=== PATIENT | female | born 1965 | race Asian ===

== ENCOUNTER 2017-11-03 18:33 | Emergency (ER) | payer OTHER ==
[2017-11-03] MEDS: BENZONATATE 100 MG CAP PO (21:11)
[2017-11-03] MEDS: IBUPROFEN 600 MG TAB PO (21:11)
[2017-11-03] MEDS: KETOROLAC 15 MG INJ IM (22:46)
== END 2017-11-03 23:31 | disposition home or self-care (01) ==
LOC: FTE 18:33
DX: R50.9 Fever, unspecified (principal); R05 Cough; R51 Headache; R53.83 Other fatigue
CPT/HCPCS: 71046; 87400; 99284-25